=== PATIENT | female | born 2005 | race Caucasian/White ===

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

== ENCOUNTER 2024-04-01 00:41 | Emergency (ER) | payer SELFPAY ==
[2024-04-01 00:45] VITALS: BP 111/76; PULSE 89; RESP 16; TEMP 36.8; O2SAT 96; BMI 25.8
[2024-04-01 01:44] VITALS: BP 117/76; PULSE 71; O2SAT 97
[2024-04-01 03:17] LABS: Basophils # 0.1 10^3/uL (0.0-0.1); Basophils % 0.6 %; Eosinophils # 0.2 10^3/uL (0.0-0.8); Eosinophils % 1.9 %; Hematocrit 41.3 % (36-47); Lymphocytes # 3.2 10^3/uL (1.5-6.5); Mean Corpuscular HGB Conc 32.7 g/dL (30-55); Mean Corpuscular Hemoglobin 27.2 pg (27-33); Mean Corpuscular Volume 83.3 fl (85-98); Mean Platelet Volume 9.7 fL (7.4-10.4); Monocytes # 0.5 10^3/uL (0.2-0.9); Monocytes % 5.5 %; Neutrophils # 4.67 10^3/uL (1.8-8.0); Neutrophils % 54.6 %; Nucleated Red Blood Cells % 0 %; Platelet Count 321 10^3/cmm (157-399); Red Blood Count 4.96 10^6/uL (3.85-5.65); Red Cell Distribution Width 13.2 % (12.1-15.1); White Blood Count 8.54 10^3/uL (4.5-13.0)
[2024-04-01 03:18] LABS: Bilirubin Urine Negative (Negative); Blood Urine Negative (Negative); Glucose Urine UA Negative (Normal); Ketones Urine Trace (Negative); Leukocyte Esterase Urine Negative (Negative); Nitrate Urine Negative (Negative); Protein Urine Negative (Negative); Specific Gravity, Urine 1.029 (1.005-1.030); Urine Appearance Clear (CLEAR); Urine Color Yellow (Yellow)
[2024-04-01 03:23] LABS: Add Urine Microscopic? YES; Bacteria Urine None Seen /hpf; RBC Urine 0-2 /hpf (0-2); Squamous Epithelial Cell Urine 0-5 /hpf (0-5); WBC Urine 0-5 /hpf (0-5)
[2024-04-01 03:26] LABS: HCG, Serum Qual Negative (Negative)
[2024-04-01 03:32] LABS: Alanine Aminotransferase 10 U/L (0-33); Albumin Level 4.5 g/dL (3.5-5.2); Alkaline Phosphatase 72 U/L (35-105); Anion Gap 14.5 (5-19); Aspartate Amino Transferase 18 U/L (0-32); Blood Urea Nitrogen 8 mg/dL (6-20); Calcium 9.8 mg/dL (8.5-10.5); Carbon Dioxide 26 mmol/L (22-29); Chloride 102 mmol/L (98-107); Creatinine Clr Calc Pharmacy 165.5016; Globulin 2.7 g/dL (1.3-4.6); Glomerular Filtration Rate 158.9 mL/min (90-130); Glucose 90 mg/dL (65-115); Lipase 24 U/L (13-60); Osmolality Calculated 286 mOsm/kg (285-295); Potassium 3.5 mmol/L (3.5-5.1); Sodium 139 mmol/L (136-145); Total Bilirubin 0.4 mg/dL (0.15-1.2); Total Protein 7.2 g/dL (6.6-8.7)
[2024-04-01 03:50] VITALS: BP 102/60; PULSE 67; O2SAT 97
[2024-04-01 04:21] VITALS: BP 96/70; PULSE 71; O2SAT 95
--- NOTE | 2024-04-01 05:05 | ED_ITS ---
HPI - General Adult 2 General: Chief complaint: Nausea/Vomiting/Diarrhea Stated complaint: n/ lightheaded 3 days+ Time Seen by Provider: 04/01/24 02:35 History of Present Illness: 18-year-old healthy female. She reports nausea and lightheadedness on for the past 3 days or so. She had his tooth filled several days ago, and is still experiencing pain on and off in the tooth. She wonders if this is the reason she is having with lightheadedness and nausea. No fever. No vomiting. No syncopal spells. No heavy bleeding. Related Data Previous Rx's Medication Instructions Recorded ketorolac 10 mg tablet 10 mg PO TID PRN pain #10 tabs 04/01/24 ondansetron 4 mg disintegrating 4 mg PO Q8H PRN nausea and 04/01/24 tablet vomiting #14 tabs Allergies Allergy/AdvReac Type Severity Reaction Status Date / Time No Known Allergies Allergy Verified 10/21/21 19:54 Physical Exam 2 Const: COMMON NORMALS: no acute distress GENERAL APPEARANCE: cooperative; not ill appearing and not frail appearing HENMT: COMMON NORMALS: normocephalic, atraumatic and Normal external nose present HEAD & SCALP: normocephalic and atraumatic FACE & SINUS: normal facial exam and face symmetric NOSE: Normal external nose present TEETH & GINGIVA: no abnormal tooth and associated gingiva Eye: COMMON NORMALS: Equal, round and reactive pupils present and EOMs intact bilaterally PUPIL: Yes Equal, round and reactive pupils present Neck/C-Spine: GENERAL: Yes trachea midline Chest: CHEST: Yes Symmetrical chest wall rise Resp: COMMON NORMALS: normal respiratory effort, No retractions, No use of accessory muscles and clear to auscultation bilaterally AUSCULTATION: clear to auscultation bilaterally Cardio: COMMON NORMALS: regular rate and regular rhythm RATE: regular rate RHYTHM: regular rhythm GI: COMMON NORMALS: Normal to inspection, nondistended, normoactive bowel sounds present and Soft to palpation PALPATION: Yes Soft to palpation, No Tenderness to palpation present (GI) and No Guarding due to palpation present (GI) Extremity: COMMON NORMALS: no pedal edema Neuro: AMANDA COMA SCALE: document GCS findings Amanda coma scale eye opening: Spontaneous Amanda coma scale verbal response: Orientated [place] coma scale motor response: Obey commands Amanda coma scale total score: 15 S ENSORY EXAM: Yes extremities (intact) Psych: COMMON NORMALS: speech normal SPEECH: Yes normal speech Skin: COMMON NORMALS: no rashes or lesions noted GENERAL SKIN EXAM: no rashes or lesions noted Course 2 Vital Signs: Vital signs: Vital Signs Temperature 98.3 F 04/01/24 00:45 Pulse Rate 71 04/01/24 04:21 Respiratory Rate 16 04/01/24 00:45 Blood Pressure 96/70 04/01/24 04:21 Pulse Oximetry 95 04/01/24 04:21 Oxygen Delivery Me thod Room Air 04/01/24 00:45 MDM - General Adult Medical Decision Making No significant tooth tenderness or abnormality to suggest treatment is needed. Vitals are stable. Laboratory is nonremarkable. She be treated symptomatically for nausea. She is told to stay hydrated. She will return for vomiting, fever, any other further problems. She will follow-up with her dentist and her doctor next week. Lab Data 04/01/24 03:11 04/01/24 03:11 Laboratory Results WBC 8.54 10^3/uL (4.5-13.0) 04/01/24 03:11 RBC 4.96 10^6/uL (3.85-5.65) 04/01/24 03:11 Hgb 13.50 g/dL (12.4-14.8) 04/01/24 03:11 Hct 41.3 % (36-47) 04/01/24 03:11 MCV 83.3 fl (85-98) L 04/01/24 03:11 MCH 27.2 pg (27-33) 04/01/24 03:11 MCHC 32.7 g/dL (30-55) 04/01/24 03:11 RDW 13.2 % (12.1-15.1) 04/01/24 03:11 Plt Count 321 10^3/cmm (157-399) 04/01/24 03:11 MPV 9.7 fL (7.4-10.4) 04/01/24 03:11 Neut % (Auto) 54.6 % 04/01/24 03:11 Lymph % (Auto) 37.0 % 04/01/24 03:11 [place] % (Auto) 5.5 % 04/01/24 03:11 Eos % (Auto) 1.9 % 04/01/24 03:11 Baso % (Auto) 0.6 % 04/01/24 03:11 Neut # (Auto) 4.67 10^3/uL (1.8-8.0) 04/01/24 03:11 Lymph # (Auto) 3.2 10^3/uL (1.5-6.5) 04/01/24 03:11 [place] # (Auto) 0.5 10^3/uL (0.2-0.9) 04/01/24 03:11 Eos # (Auto) 0.2 10^3/uL (0.0-0.8) 04/01/24 03:11 Baso # (Auto) 0.1 10^3/uL (0.0-0.1) 04/01/24 03:11 Nucleated RBC % (auto) 0 % 04/01/24 03:11 Nucleated RBCs # 0.0 /100WBC 04/01/24 03:11 Sodium 139 mmol/L (136-145) 04/01/24 03:11 Potassium 3.5 mmol/L (3.5-5.1) 04/01/24 03:11 Chloride 102 mmol/L (98-107) 04/01/24 03:11 Carbon Dioxide 26 mmol/L (22-29) 04/01/24 03:11 Anion Gap 14.5 (5-19) 04/01/24 03:11 BUN 8 mg/dL (6-20) 04/01/24 03:11 Creatinine 0.5 mg/dL (0.5-0.9) 04/01/24 03:11 GFR Calculation 158.9 mL/min (90-130) H 04/01/24 03:11 Glucose 90 mg/dL (65-115) 04/01/24 03:11 Calculated Osmolality 286 mOsm/kg (285-295) 04/01/24 03:11 Calcium 9.8 mg/dL (8.5-10.5) 04/01/24 03:11 Total Bilirubin 0.4 mg/dL (0.15-1.2) 04/01/24 03:11 AST 18 U/L (0-32) 04/01/24 03:11 ALT 10 U/L (0-33) 04/01/24 03:11 Alkaline Phosphatase 72 U/L (35-105) 04/01/24 03:11 C-Reactive Protein 3.0 mg/L (0.0-4.9) 04/01/24 03:11 Total Protein 7.2 g/dL (6.6-8.7) 04/01/24 03:11 Albumin 4.5 g/dL (3.5-5.2) 04/01/24 03:11 Globulin 2.7 g/dL (1.3-4.6) 04/01/24 03:11 Lipase 24 U/L (13-60) 04/01/24 03:11 HCG, Qual Negative (Negative) 04/01/24 03:11 Urine Color Yellow (Yellow) 04/01/24 03:11 Urine Appearance Clear (CLEAR) 04/01/24 03:11 Urine pH 6.0 (5-7) 04/01/24 03:11 Ur Specific [place] 1.029 (1.005-1.030) 04/01/24 03:11 Urine Protein Negative (Negative) 04/01/24 03:11 Urine Glucose (UA) Negative (Normal) 04/01/24 03:11 Urine Ketones Trace (Negative) 04/01/24 03:11 Urine Blood Negative (Negative) 04/01/24 03:11 Urine Nitrate Negative (Negative) 04/01/24 03:11 Urine Bilirubin Negative (Negative) 04/01/24 03:11 Urine Urobilinogen 1.0 mg/dL (Negative) 04/01/24 03:11 Ur Leukocyte Esterase Negative (Negative) 04/01/24 03:11 Urine RBC 0-2 /hpf (0-2) 04/01/24 03:11 Urine WBC 0-5 /hpf (0-5) 04/01/24 03:11 Ur Squamous Epith Cells 0-5 /hpf (0-5) 04/01/24 03:11 Amorphous Sediment Not Reportable 04/01/24 03:11 Urine Bacteria None seen /hpf (NONE) 04/01/24 03:11 Hyaline Casts 0.40 /lpf 04/01/24 03:11 No radiology studies performed this visit Discharge Plan Discharge Patient Disposition: Home Clinical Impression: Atypical toothache, Nausea in adult patient Condition: Stable Prescriptions: New ketorolac 10 mg tablet 10 mg PO TID PRN (Reason: pain) Qty: 10 0RF Continued ondansetron 4 mg tablet,disintegrating 4 mg PO Q8H PRN (Reason: nausea and vomiting) Qty: 14 0RF Discharge Orders: Discharge ED (Routine); Ordered 04/01/24 Ordered By: Paul Reid Referrals: Logan Trevizo MD [Primary Care Provider] - 4-7 days Patient Instructions: Toothache (ED), Opioid Safety, Pain Management Activity Restrictions/Additional Instructions: Speak to your dentist office on Wednesday. Let them know you are still having problems with your tooth. They may want to see you. Medications as directed for pain and nausea. Make sure you stay hydrated. Follow-up with your doctor this week. Return for fever greater than 100, vomiting liquids or medications, worsening pain despite treatment, any other concerning symptoms. Stand Alone Forms: Work/School Release Coding Level of Care Code ED Central Supply Manager for Damien Vera
== END 2024-04-01 04:23 | disposition home or self-care (01) ==
PROVIDERS: Emergency Provider Emergency Medicine; PCP Family Medicine
DX: K08.89 Other specified disorders of teeth and supporting structures (principal); R11.0 Nausea
CPT/HCPCS: 80053; 81001; 83690; 84703; 85025; 86140; 99283